=== PATIENT | female | born 1950 | race Native Hawaiian/Other Pacific Islander ===

== ENCOUNTER 2016-09-14 08:55 | Emergency (ER) | payer OTHER ==
[~2016-09-14] VITALS: Ht 167.6 cm; Wt 69.9 kg
[2016-09-14 10:41] LABS: PLATELET COUNT 290 K/uL (152-353)
[2016-09-14 10:49] LABS: POTASSIUM 5.1 mmol/L (3.6-5.2)
[2016-09-14 12:30] VITALS: BP 124/67; TEMP 98.2
== END 2016-09-14 12:36 | disposition home or self-care (01) ==
LOC: ED 08:55
PROVIDERS: Specialist
DX: K52.89 Other specified noninfective gastroenteritis and colitis (principal); R19.7 Diarrhea, unspecified
CPT/HCPCS: 36415; 80053; 82150; 82272; 83690; 83735; 84100; 85027; 99283

== ENCOUNTER 2016-10-16 15:03 | Outpatient (CLI) | payer OTHER | END 2016-10-16 16:15 | disposition home or self-care (01) | LOC: CT 15:03 | DX: R51 Headache (principal) ==

== ENCOUNTER 2017-02-04 11:13 | Outpatient (CLI) | payer OTHER | END 2017-02-04 21:57 | disposition home or self-care (01) | LOC: RAD 11:13 | DX: M85.89 Other specified disorders of bone density and structure, multiple sites (principal) ==

== ENCOUNTER 2017-02-17 10:42 | Outpatient (CLI) | payer OTHER ==
[2017-02-17 11:32] LABS: PLATELET COUNT 266 K/uL (152-353)
[2017-02-17 11:42] LABS: POTASSIUM 3.9 mmol/L (3.6-5.2)
== END 2017-02-17 11:45 | disposition home or self-care (01) ==
LOC: MAMMO 10:42
PROVIDERS: Podiatrist
DX: Z12.31 Encounter for screening mammogram for malignant neoplasm of breast (principal); Z01.810 Encounter for preprocedural cardiovascular examination; Z01.811 Encounter for preprocedural respiratory examination; Z01.812 Encounter for preprocedural laboratory examination; R73.09 Other abnormal glucose
CPT/HCPCS: 36415; 80053; 83036; 85027; 93005

== ENCOUNTER 2017-07-28 08:08 | Emergency (ER) | payer OTHER ==
[~2017-07-28] VITALS: Ht 167.6 cm; Wt 90.7 kg
[2017-07-28 08:14] VITALS: TEMP 97.9
[2017-07-28] MEDS ORDERED: TIROSINT50 MCG OR (08:24)
[2017-07-28] MEDS ORDERED: METFORMIN HCL500 MG PO (08:24)
[2017-07-28] MEDS ORDERED: KP FOLIC ACID1 MG PO (08:25)
[2017-07-28] MEDS ORDERED: LEFLUNOMIDE20 MG OR (08:26)
[2017-07-28] MEDS ORDERED: LISI20TA11 PO (08:27)
[2017-07-28 09:38] LABS: PLATELET COUNT 260 K/uL (152-353)
[2017-07-28 09:44] LABS: POTASSIUM 5.1 mmol/L (3.6-5.2); SODIUM 130 mmol/L (136-145)
[2017-07-28 11:15] VITALS: BP 119/75
== END 2017-07-28 11:17 | disposition home or self-care (01) ==
LOC: ED 08:08
PROVIDERS: Emergency Medicine
DX: K59.09 Other constipation (principal); K29.60 Other gastritis without bleeding; R10.84 Generalized abdominal pain
CPT/HCPCS: 36415; 80053; 81000; 82150; 82550; 83690; 84484; 85027; 86318; 93005; 96374; 99284; J3490

== ENCOUNTER 2017-11-10 08:57 | Outpatient (CLI) | payer OTHER ==
[~2017-11-10 08:57] MED LIST: KP FOLIC ACID1 MG PO; LEFLUNOMIDE20 MG OR; LISI20TA11 PO; METFORMIN HCL500 MG PO; TIROSINT50 MCG OR
[2017-11-10 09:46] LABS: PLATELET COUNT 333 K/uL (152-353)
== END 2017-11-10 23:54 | disposition home or self-care (01) ==
LOC: LABW 08:57
PROVIDERS: Internal Medicine Rheumatology
DX: E56.8 Deficiency of other vitamins (principal); M08.00 Unspecified juvenile rheumatoid arthritis of unspecified site; R70.0 Elevated erythrocyte sedimentation rate
CPT/HCPCS: 36415; 82340; 83883; 84155; 84156; 84165; 85027; 85651; 86140; 86335

== ENCOUNTER 2018-02-21 09:26 | Outpatient (CLI) | payer OTHER | END 2018-02-21 19:27 | disposition home or self-care (01) | LOC: MAMMO 09:26 | DX: Z12.31 Encounter for screening mammogram for malignant neoplasm of breast (principal); Z78.0 Asymptomatic menopausal state ==

== ENCOUNTER 2018-09-05 07:51 | Outpatient (CLI) | payer OTHER ==
[2018-09-05 08:35] LABS: POTASSIUM 4.5 mmol/L (3.6-5.2)
[2018-09-05 08:36] LABS: PLATELET COUNT 185 K/uL (152-353)
== END 2018-09-05 19:29 | disposition home or self-care (01) ==
LOC: LABW 07:51
PROVIDERS: Nurse Practitioner
DX: I10 Essential (primary) hypertension (principal); E11.9 Type 2 diabetes mellitus without complications; E03.8 Other specified hypothyroidism; E78.00 Pure hypercholesterolemia, unspecified; E53.8 Deficiency of other specified B group vitamins; E55.9 Vitamin D deficiency, unspecified
CPT/HCPCS: 36415; 80053; 80061; 82043; 82306; 82570; 82607; 83036; 84443; 85027

== ENCOUNTER 2018-09-19 04:58 | Emergency (ER) | payer OTHER ==
[~2018-09-19] VITALS: Ht 167.6 cm; Wt 96.6 kg
[2018-09-19 06:27] LABS: POTASSIUM 4.2 mmol/L (3.6-5.2)
[2018-09-19 06:34] LABS: PLATELET COUNT 222 K/uL (152-353)
[2018-09-19 08:42] VITALS: BP 110/64; TEMP 98.3
== END 2018-09-19 08:42 | disposition home or self-care (01) ==
LOC: ED 04:58
PROVIDERS: Family Medicine
DX: K57.92 Diverticulitis of intestine, part unspecified, without perforation or abscess without bleeding (principal)
CPT/HCPCS: 80053; 81000; 85027; 96360; 96375; 99283; J1885; J2405

== ENCOUNTER 2018-10-18 08:13 | Outpatient (CLI) | payer OTHER | END 2018-10-18 19:14 | disposition home or self-care (01) | LOC: RAD 08:13 | DX: M05.79 Rheumatoid arthritis with rheumatoid factor of multiple sites without organ or systems involvement (principal); Z79.899 Other long term (current) drug therapy ==

== ENCOUNTER 2018-10-20 08:24 | Outpatient (CLI) | payer OTHER | END 2018-10-20 23:43 | disposition home or self-care (01) | LOC: CT 08:24 | DX: R10.13 Epigastric pain (principal) ==

== ENCOUNTER 2019-03-20 08:34 | Outpatient (CLI) | payer OTHER | END 2019-03-20 19:21 | disposition home or self-care (01) | LOC: RAD 08:34 | DX: M85.89 Other specified disorders of bone density and structure, multiple sites (principal) ==

== ENCOUNTER 2019-03-31 09:27 | Outpatient (CLI) | payer OTHER | END 2019-03-31 19:08 | disposition home or self-care (01) | LOC: US 09:27 | DX: R93.89 Abnormal findings on diagnostic imaging of other specified body structures (principal) ==

== ENCOUNTER 2019-04-26 15:30 | Outpatient (CLI) | payer OTHER ==
[2019-04-26 16:28] LABS: POTASSIUM 5.2 mmol/L (3.6-5.2)
[2019-04-26 16:48] LABS: PLATELET COUNT 225 K/uL (152-353)
== END 2019-04-26 21:45 | disposition home or self-care (01) ==
LOC: LAB 15:30
PROVIDERS: Nurse Practitioner Family
DX: Z00.00 Encounter for general adult medical examination without abnormal findings (principal); E03.8 Other specified hypothyroidism; D64.89 Other specified anemias; E11.9 Type 2 diabetes mellitus without complications; I10 Essential (primary) hypertension; M54.5 Low back pain; E78.00 Pure hypercholesterolemia, unspecified; Z79.899 Other long term (current) drug therapy; E53.8 Deficiency of other specified B group vitamins; E55.9 Vitamin D deficiency, unspecified
CPT/HCPCS: 80053; 80061; 82306; 82607; 82728; 83036; 83540; 84439; 84443; 85027

== ENCOUNTER 2019-05-15 09:33 | Outpatient (CLI) | payer OTHER | END 2019-05-15 21:48 | disposition home or self-care (01) | LOC: MAMMO 09:33 | DX: Z12.31 Encounter for screening mammogram for malignant neoplasm of breast (principal) ==

== ENCOUNTER 2019-06-20 10:37 | Outpatient (CLI) | payer OTHER ==
[2019-06-20 11:34] LABS: PLATELET COUNT 211 K/uL (152-353)
[2019-06-20 11:49] LABS: POTASSIUM 4.6 mmol/L (3.6-5.2)
== END 2019-06-20 22:21 | disposition home or self-care (01) ==
LOC: RAD 10:37
PROVIDERS: Nurse Practitioner Family
DX: M85.89 Other specified disorders of bone density and structure, multiple sites (principal); D47.2 Monoclonal gammopathy
CPT/HCPCS: 36415; 80053; 82784; 82785; 83883; 84165; 85027

== ENCOUNTER 2020-05-28 08:32 | Outpatient (CLI) | payer OTHER | END 2020-05-28 21:40 | disposition home or self-care (01) | LOC: MAMMO 08:32 | PROVIDERS: ATTEND Nurse Practitioner Family | DX: Z12.31 Encounter for screening mammogram for malignant neoplasm of breast (principal) ==

== ENCOUNTER 2020-07-27 00:19 | Emergency (ER) | payer OTHER ==
[~2020-07-27] VITALS: Ht 167.6 cm; Wt 96.6 kg
[2020-07-27 02:00] VITALS: BP 113/75
== END 2020-07-27 02:00 | disposition home or self-care (01) ==
LOC: ED 00:19
DX: K29.60 Other gastritis without bleeding (principal); K21.9 Gastro-esophageal reflux disease without esophagitis; R13.19 Other dysphagia
CPT/HCPCS: 36415; 99281

== ENCOUNTER 2020-09-16 12:06 | Outpatient (CLI) | payer OTHER | END 2020-09-16 19:38 | disposition home or self-care (01) | LOC: US 12:06 | PROVIDERS: ATTEND Nurse Practitioner Family | DX: N63.20 Unspecified lump in the left breast, unspecified quadrant (principal); N64.59 Other signs and symptoms in breast | CPT/HCPCS: G0279 ==

== ENCOUNTER 2020-10-10 08:41 | Outpatient (CLI) | payer OTHER | END 2020-10-10 22:00 | disposition home or self-care (01) | LOC: US 08:41 | PROVIDERS: ATTEND Physician Assistant Medical | DX: N63.20 Unspecified lump in the left breast, unspecified quadrant (principal); R92.8 Other abnormal and inconclusive findings on diagnostic imaging of breast ==

== ENCOUNTER 2021-02-25 13:29 | Outpatient (CLI) | payer OTHER | END 2021-02-25 19:39 | disposition home or self-care (01) | LOC: MAMMO 13:29 | PROVIDERS: ATTEND Physician Assistant Medical | DX: R92.8 Other abnormal and inconclusive findings on diagnostic imaging of breast (principal) | CPT/HCPCS: G0279 ==

== ENCOUNTER 2021-04-25 09:36 | Outpatient (CLI) | payer OTHER | END 2021-04-25 18:57 | disposition home or self-care (01) | LOC: RAD 09:36 | PROVIDERS: ATTEND Nurse Practitioner Family | DX: M05.79 Rheumatoid arthritis with rheumatoid factor of multiple sites without organ or systems involvement (principal); M19.041 Primary osteoarthritis, right hand; M19.042 Primary osteoarthritis, left hand; M19.071 Primary osteoarthritis, right ankle and foot; M19.072 Primary osteoarthritis, left ankle and foot; E55.9 Vitamin D deficiency, unspecified; E56.8 Deficiency of other vitamins; M81.0 Age-related osteoporosis without current pathological fracture ==

== ENCOUNTER 2021-07-22 11:49 | Outpatient (CLI) | payer OTHER | END 2021-07-22 18:59 | disposition home or self-care (01) | LOC: RAD 11:49 | PROVIDERS: ATTEND Nurse Practitioner Family | DX: M25.531 Pain in right wrist (principal) ==

== ENCOUNTER 2021-08-11 10:22 | Outpatient (CLI) | payer OTHER | END 2021-08-11 18:57 | disposition home or self-care (01) | LOC: MAMMO 10:22 | PROVIDERS: ATTEND Nurse Practitioner Family | DX: Z12.31 Encounter for screening mammogram for malignant neoplasm of breast (principal) ==

== ENCOUNTER 2021-09-19 12:43 | Observation (INO) | payer OTHER ==
[~2021-09-19] VITALS: Ht 167.6 cm; Wt 102.7 kg
[~2021-09-19 12:43] MED LIST changes: +EUTHYROX75 MCG PO; -TIROSINT50 MCG OR
[2021-09-19 12:52] VITALS: BP 141/69; TEMP 98
[2021-09-19 13:59] LABS: PLATELET COUNT 288 K/uL (152-353)
[2021-09-19 14:16] LABS: POTASSIUM 3.9 mmol/L (3.6-5.2)
[2021-09-19 16:52] VITALS: BP 149/64; TEMP 97.8
[2021-09-19 17:21] VITALS: BP 149/64; TEMP 97.8; Ht 167.6 cm; Wt 102.7 kg
[2021-09-19] MEDS ORDERED: FENOFIBRATE54 MG PO (18:52)
[2021-09-19 18:54] LABS: PLATELET COUNT 286 K/uL (152-353)
[2021-09-19] MEDS ORDERED: LISINOPRIL/HCTZ PO (18:56)
[2021-09-19] MEDS ORDERED: LIPITOR20 MG PO (18:56)
[2021-09-19] MEDS ORDERED: GLIMEPIRIDE PO (19:02)
[2021-09-19] MEDS ORDERED: HYDROXYCHLOR200 MG PO (19:07)
[2021-09-19] MEDS ORDERED: ALEN70TA19 PO (19:10)
[2021-09-19 19:50] VITALS: BP 124/74; TEMP 98.2
[2021-09-19 20:31] LABS: POTASSIUM 3.8 mmol/L (3.6-5.2)
[2021-09-19 23:48] VITALS: BP 125/63; TEMP 97.3
[2021-09-20 03:50] VITALS: BP 124/59; TEMP 97.8
[2021-09-20 05:02] LABS: PLATELET COUNT 257 K/uL (152-353)
[2021-09-20 05:11] LABS: POTASSIUM 5.2 mmol/L (3.6-5.2)
[2021-09-20 08:00] VITALS: BP 133/62; TEMP 98.5
[2021-09-20] MEDS ORDERED: METFORMIN HCL500 M1 PO (11:26)
== END 2021-09-20 13:00 | disposition home or self-care (01) ==
LOC: ED 12:43 → MED/SURG 14:50
PROVIDERS: ADMIT Emergency Medicine; ATTEND Internal Medicine
DX: E11.649 Type 2 diabetes mellitus with hypoglycemia without coma (principal); E03.8 Other specified hypothyroidism; E78.49 Other hyperlipidemia; M81.8 Other osteoporosis without current pathological fracture; M06.8A Other specified rheumatoid arthritis, other specified site; Z86.73 Personal history of transient ischemic attack (TIA), and cerebral infarction without residual deficits; I12.9 Hypertensive chronic kidney disease with stage 1 through stage 4 chronic kidney disease, or unspecified chronic kidney disease; E11.22 Type 2 diabetes mellitus with diabetic chronic kidney disease; N18.4 Chronic kidney disease, stage 4 (severe); R42 Dizziness and giddiness
CPT/HCPCS: 36415; 80053; 81000; 82948; 84443; 84484; 85027; 85610; 87635; 93005; 96360; 96361; 99220; 99284; G0378; U0003

== ENCOUNTER → 2022-08-13 | Outpatient (CLI) | payer OTHER ==
[~2022-08-13] MED LIST changes: +ALEN70TA19 PO; +COMPLEX PO; +FENOFIBRATE54 MG PO; +GLIMEPIRIDE PO; +HYDROXYCHLOR200 MG PO; +LIPITOR20 MG PO; +LISINOPRIL & HCTZ PO; +METF500T PO; +METFORMIN HCL500 M1 PO; +MOUNJARO SC; +ORENCIA; +PHENELX32 PO; +SOLIFENACIN SUC10 MG PO; +SUPER B PO; +VITAMIN D2000 UNI2 PO
== END ==
LOC: MAMMO 08:10
PROVIDERS: ATTEND Physician Assistant Medical
DX: Z12.31 Encounter for screening mammogram for malignant neoplasm of breast (principal)

== ENCOUNTER 2022-08-31 09:29 | Outpatient (CLI) | payer OTHER ==
[2022-08-31 09:58] LABS: PLATELET COUNT 284 K/uL (152-353)
[2022-08-31 11:15] LABS: POTASSIUM 3.9 mmol/L (3.6-5.2)
== END 2022-08-31 21:11 ==
LOC: LABW 09:29
PROVIDERS: ATTEND Internal Medicine
DX: N18.4 Chronic kidney disease, stage 4 (severe) (principal); D63.1 Anemia in chronic kidney disease; E11.9 Type 2 diabetes mellitus without complications; E03.8 Other specified hypothyroidism
CPT/HCPCS: 36415; 80053; 81002; 82043; 82330; 82550; 82570; 82607; 82728; 82746; 83036; 83540; 83550; 83735; 83970; 84100; 84156; 84439; 84443; 84550; 85027

== ENCOUNTER 2023-01-04 12:38 | Outpatient (CLI) | payer OTHER ==
[2023-01-04 12:55] LABS: PLATELET COUNT 299 K/uL (152-353)
[2023-01-04 13:53] LABS: POTASSIUM 4.2 mmol/L (3.6-5.2)
== END 2023-01-04 20:25 | disposition home or self-care (01) ==
LOC: LABW 12:38
PROVIDERS: ATTEND Internal Medicine
DX: E11.22 Type 2 diabetes mellitus with diabetic chronic kidney disease (principal); N18.4 Chronic kidney disease, stage 4 (severe); D63.1 Anemia in chronic kidney disease
CPT/HCPCS: 36415; 80053; 81002; 82043; 82330; 82550; 82570; 82607; 82728; 82746; 83036; 83540; 83550; 83735; 83970; 84100; 84156; 84439; 84443; 84550; 85027